=== PATIENT | female | born 1985 | race Caucasian/White ===

== ENCOUNTER 2020-01-06 20:39 | Emergency (ER) | payer SELFPAY ==
[2020-01-06] MEDS ORDERED: Lidocaine 1% 10 ML MDV INJECT ONE (21:07)
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
== END 2020-01-06 22:01 | disposition home or self-care (01) ==
LOC: JD.ED 20:39
DX: S91.322A Laceration with foreign body, left foot, initial encounter (principal); Z88.1 Allergy status to other antibiotic agents; Z88.2 Allergy status to sulfonamides; J45.909 Unspecified asthma, uncomplicated; W25.XXXA Contact with sharp glass, initial encounter
CPT/HCPCS: 99283; J2001; 99282

== ENCOUNTER 2021-08-12 19:43 | Emergency (ER) | payer SELFPAY | END 2021-08-12 21:30 | disposition left against medical advice (07) | LOC: JD.ED 19:43 | DX: R53.81 Other malaise (principal); R53.83 Other fatigue; Z86.16 Personal history of COVID-19; Z90.49 Acquired absence of other specified parts of digestive tract; Z88.1 Allergy status to other antibiotic agents; Z88.2 Allergy status to sulfonamides; Z88.6 Allergy status to analgesic agent | CPT/HCPCS: 99282; 99283 ==

== ENCOUNTER 2024-12-17 12:08 | Emergency (ER) | payer SELFPAY ==
[2024-12-17] MEDS ORDERED: Naloxone 0.4 MG/ML SDV IVPUSH PRN (12:25)
[2024-12-17] MEDS: fentaNYL 100 MCG/2 ML SDV IVPUSH ONE (12:54)
[2024-12-17] MEDS: Diphtheria,Pertussis(Acell),Tetanus Vaccine 0.5 ML Syringe IM ONE (13:42)
[2024-12-17] MEDS: Lidocaine/Epineph/Tetracaine 3 ML Syringe TOP ONE (13:51)
[2024-12-17] MEDS: Ondansetron 4 MG/2 ML SDV IVPUSH ONE ×2 (16:36→17:03)
[2024-12-17] MEDS: Acetaminophen/oxyCODONE 325-5 MG Tab PO ONE (18:03)
[2024-12-17] MEDS: Ondansetron 4 MG Tab.DIS PO ONE (18:05)
== END 2024-12-17 18:10 | disposition home or self-care (01) ==
LOC: JD.ED 12:08
DX: S02.31XB Fracture of orbital floor, right side, initial encounter for open fracture (principal); S02.40CB Maxillary fracture, right side, initial encounter for open fracture; Z23 Encounter for immunization; Z88.1 Allergy status to other antibiotic agents; Z88.2 Allergy status to sulfonamides; Z88.8 Allergy status to other drugs, medicaments and biological substances; Z86.16 Personal history of COVID-19; W22.8XXA Striking against or struck by other objects, initial encounter; Y93.89 Activity, other specified
CPT/HCPCS: 12015; 36415; 70450; 70486; 85018; 90471; 90715; 96374; 96375; 99284; A9270; J0696; J2003; J2405; J3010; J7030